=== PATIENT | male | born 1985 | race Caucasian/White ===

== ENCOUNTER 2019-07-06 16:24 | Inpatient (IN) | payer MEDICARE, MEDICAID ==
[~2019-07-06] VITALS: Ht 188 cm; Wt 131.0 kg
--- NOTE | ~2019-07-06 | CON ---
[address] [address] CONSULTATION Name: ADARSH JORDAN Room: [address] IN .R.#: [id number] Admission: 07/06/19 Attend Phys: Vern Ching Discharge: Date of : 81 Report #: [id number] THIS REPORT FOR: //name// cc: NACHO - Mitzi family physician/PCP NACHO - Mitzi family physician/PCP ~ THIS REPORT FOR: //name// CC: NACHO physician/PCP Meir Mckeon DATE OF SERVICE: 07/07/2019 REQUESTING PHYSICIAN: Kale Ramsay MD REASON FOR CONSULTATION: Assist in providing dialysis. HISTORY OF PRESENT ILLNESS: The patient is a 34-year-old man with medical history significant for end-stage renal disease, who presents to the Emergency Room with chief complaints of shortness of breath, weakness. He was found to be fluid overloaded. The patient did not go to his Dialysis Unit because he fell and hit his right knee. PAST MEDICAL HISTORY: 1. End-stage renal disease. 2. History of cardiomyopathy. 3. Degenerative joint disease. FAMILY HISTORY: Noncontributory. SOCIAL HISTORY: No alcohol abuse. MEDICATIONS PRIOR TO ADMISSION: Reviewed. REVIEW OF SYSTEMS: Positive for the symptoms I mentioned earlier, otherwise all systems reviewed and negative. PHYSICAL EXAMINATION: GENERAL: Examined on dialysis, awake, alert, oriented. VITAL SIGNS: Blood pressure 115/66, heart rate 69, afebrile. HEENT: Pupils are round. NECK: Fatty. LUNGS: Clear. CARDIOVASCULAR: Regular rate. ABDOMEN: Soft. LOWER EXTREMITIES: No edema. [facility] [address] [place] [address] CONSULTATION Name: ADARSH JORDAN Room: [address] IN .R.#: [id number] Admission: 07/06/19 Attend Phys: Vern Ching Discharge: Date of : 81 Report #: [id number] ASSESSMENT: 1. End-stage renal disease. 2. Fluid overload. 3. Status post fall with self-trauma to right knee. PLAN: Dialysis today. Most likely, he will be okay to go home after dialysis. By: [id number] Cobb MD /nt
[~2019-07-06 16:24] MED LIST: BACTRIM DS TAB1 EACH PO; DARVOCET-N 1001 EACH PO; HUMALOG100 UNIT/1; IBUPROFEN 800800 MG PO; LANTUS; NOHOMEMEDICATIONS; NORFLEX100 MG PO
[2019-07-06 16:28] VITALS: BP 93/50
[2019-07-06] MEDS ORDERED: ATORVASTATIN CA80 MG PO (16:31)
[2019-07-06] MEDS ORDERED: CARVEDILOL25 MG PO (16:31)
[2019-07-06] MEDS ORDERED: NEURONTIN100 MG PO (16:32)
[2019-07-06] MEDS ORDERED: HYDRALAZINE 2525 M1 PO (16:32)
[2019-07-06] MEDS ORDERED: CARDURA1 MG PO (16:32)
[2019-07-06] MEDS ORDERED: REGLAN 10 MG TA10 MG PO (16:33)
[2019-07-06] MEDS ORDERED: ZESTRIL40 MG PO (16:33)
[2019-07-06] MEDS ORDERED: NIFEDIPINE ER30 M1 PO (16:33)
[2019-07-06] MEDS ORDERED: PROTONIX40 M2 PO (16:34)
--- NOTE | 2019-07-06 16:56 | NUR ---
PT REFUSING LABS AT THIS TIME AND NOTIFIED VENUS WITH VERBALIZED UNDERSTANDING
[2019-07-06 17:10] LABS: INFLUENZA A ANTIGEN Negative (Negative); INFLUENZA B ANTIGEN Negative (Negative)
[2019-07-06 17:18] LABS: ABSOLUTE BASOPHILS 0.1 thou/uL (0.0-0.2); ABSOLUTE EOSINOPHILS 0.3 thou/uL (0.0-0.7); ABSOLUTE LYMPHOCYTES 0.9 thou/uL (0.8-5.3); ABSOLUTE MONOCYTES 0.8 thou/uL (0.0-1.2); ABSOLUTE NEUTROPHILS 6.6 thou/uL (1.6-8.1); BASOPHILS 1.3 %; HEMATOCRIT 28.7 % (42.0-52.0); HEMOGLOBIN 9.8 gm/dL (14.0-18.0); LYMPHOCYTES 10.6 %; MCH 30.2 pg (26.0-34.0); MCHC 34.2 g/dL (28.0-37.0); MCV 88.5 fL (80.0-100.0); MONOCYTES 9.3 %; MPV 7.3 fl. (7.2-11.1); NUCLEATED RBCS 0 /100WBC; PLATELET COUNT* 321 thou/uL (150-400); POLYS 75.8 %; RBC 3.25 mil/uL (4.50-6.00); RDW-CV 16.2 % (10.5-14.5); WBC 8.7 thou/uL (4.0-11.0)
[2019-07-06 17:35] LABS: ANION GAP 13 mmol/L (7-16); BUN 55 mg/dL (7-18); CALCIUM 7.6 mg/dL (8.5-10.1); CHLORIDE 90 mmol/L (98-107); CO2 26 mmol/L (21-32); CREATININE 7.3 mg/dL (0.6-1.3); GLUCOSE 119 mg/dL (70-99); POTASSIUM 4.4 mmol/L (3.5-5.1); SODIUM 129 mmol/L (136-145)
[2019-07-06 17:39] LABS: ALBUMIN 2.6 g/dL (3.4-5.0); ALKALINE PHOSPHATASE 233 U/L (46-116); NT-PRO BRAIN NAT PEPTIDE > 35000 pg/mL (<300); SGOT 20 U/L (15-37); SGPT 31 U/L (30-65); TOTAL BILIRUBIN 0.8 mg/dL (<0.1-1.0)
--- NOTE | 2019-07-06 19:01 | NUR ---
PT HAVING EPISODES OF DIARRHEA AND PLACED ON BSC AND HAS BEEN ON BSC FOR 20 MINUTES. PT STATES STILL GOING AT THIS TIME. PT HAS CALL LIGHT AND VERBALIZES UNDERSTANDING TO PUSH BUTTON WHEN HE IS DONE AND WE'LL GET HIM OFF THE BSC. CONTINUE TO MONITOR PT
[2019-07-06 19:43] VITALS: BP 103/56
[2019-07-06 20:00] VITALS: BP 124/70
--- NOTE | 2019-07-06 20:00 | NUR ---
RECEIVED REPORT FROM ER, ADMITTED TO ROOM. NO ACUTE DISTRESS. SITTING UP IN BED, O2 ON AT 2L/NC, NO SOB NOTED. ABD LARGELY DISTENDED WITH HYPERACTIVE BOWEL SOUNDS. PT IS HAVING DIARRHEA WITH HX OF GASTROPORESIS. GENNARO LOWER LEGS 3+ EDEMA. TELEMETRY APPLIED SHOWING SR. PT IS REFUSING TO HAVE BED ALARM ON FOR SAFETY DUE TO FREQ DIARRHEA. PT EDUCATED BUT CONT TO REFUSE. ACEWRAP INTACT TO LT KNEE. WILL CONT TO MONITOR AND ASSIST NEEDED.
[2019-07-07 00:23] VITALS: BP 118/71; BP 169/64
[2019-07-07 04:38] LABS: HEMATOCRIT 27.1 % (42.0-52.0); HEMOGLOBIN 9.3 gm/dL (14.0-18.0); NUCLEATED RBCS 0 /100WBC
[2019-07-07 04:41] LABS: ABSOLUTE BASOPHILS 0.1 thou/uL (0.0-0.2); ABSOLUTE EOSINOPHILS 0.3 thou/uL (0.0-0.7); ABSOLUTE MONOCYTES 0.7 thou/uL (0.0-1.2); ABSOLUTE NEUTROPHILS 5.2 thou/uL (1.6-8.1); EOSINOPHILS 4.2 %; LYMPHOCYTES 14.3 %; MCH 30.2 pg (26.0-34.0); MCHC 34.2 g/dL (28.0-37.0); MCV 88.3 fL (80.0-100.0); MPV 7.4 fl. (7.2-11.1); PLATELET COUNT* 281 thou/uL (150-400); POLYS 70.5 %; RBC 3.07 mil/uL (4.50-6.00); RDW-CV 15.8 % (10.5-14.5); WBC 7.3 thou/uL (4.0-11.0)
[2019-07-07 04:46] VITALS: BP 119/71
[2019-07-07 05:08] LABS: ALBUMIN 2.5 g/dL (3.4-5.0); CALCIUM 7.9 mg/dL (8.5-10.1); CREATININE 7.6 mg/dL (0.6-1.3); POTASSIUM 4.2 mmol/L (3.5-5.1); TOTAL BILIRUBIN 0.8 mg/dL (<0.1-1.0); TOTAL PROTEIN 6.6 g/dL (6.4-8.2)
--- NOTE | 2019-07-07 06:52 | NUR ---
AWAKE MOST OF NIGHT WITH C/O BACK PAIN. NO INCREASED SOA. CONT TO HAVE DIARRHEA. CORRECTION-ABRASION IS TO RT KNEE, PT REMOVED ACEWRAP, LG BANDAID TO SITE. PT CONT TO HAVE DIARRHEA. TELEMETRY CONT TO SHOW SR. NO CHANGE IN ASSESSMENT. HOURLY ROUNDING OBSERVED.
[2019-07-07 07:10] VITALS: BP 115/66
--- NOTE | 2019-07-07 09:36 | EKG ---
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1985 Requested By: Jeremy Turcios Order Number: [id number] MD: Benigno Lynn Measurements Intervals [place] Rate: 64 P: -7 [place]: 183 QRS: 2 QRSD: 113 T: 95 QT: 478 QTc: 494 Interpretive Statements Sinus rhythm Borderline intraventricular conduction delay Nonspecific T abnormalities, lateral leads Borderline prolonged QT interval No previous ECG available for comparison Electronically Signed On 07-07-2019 9:34:47 CDT by Benigno Lynn [email or web address] <ELECTRONICALLY SIGNED> By: Benigno Lynn MD, FACC 07/07/19 0934 1657 1657 Benigno Lynn MD, [facility] /EPI
--- NOTE | 2019-07-07 11:03 | NUR ---
INITAL ASSESSMENT COMPLETED CHARTED. VSS. PT C/O CHRONIC BACK PAIN, OTHERWISE NO COMPLAINTS. PT IN DIALYSIS. TO D/C TODAY AFTER DIALYSIS. NO NEW CONCERNS. REFER TO CHARTING FOR FURTHER DETAILS. HOURLY ROUNDING IN PLACE FOR PT SAFETY. PT REFUSES FALL PRECAUTIONS. CLWR.
[2019-07-07 13:32] VITALS: BP 144/89
--- NOTE | 2019-07-07 13:45 | NUR ---
DISCUSSED WITH NURSE AND TRIED TO CALL PT IN DIALYSIS AND IN ROOM, UNABLE TO REACH. NOTED DC ORDERS. PT FROM HOME AND GOES TO DIALYSIS
== END 2019-07-07 15:12 | disposition home or self-care (01) | DRG 682 ==
LOC: M.ERS 16:24 → M.2W 18:16 → M.TBA-ER 18:16 → M.2W 20:26
PROVIDERS: Physician Assistant; ADMIT Internal Medicine
PROC: 5A1D70Z Performance of Urinary Filtration, Intermittent, Less than 6 Hours Per Day (ICD-10-PCS; principal; 2019-07-07)
DX: N17.9 Acute kidney failure, unspecified (principal); I50.33 Acute on chronic diastolic (congestive) heart failure; E43 Unspecified severe protein-calorie malnutrition; I13.2 Hypertensive heart and chronic kidney disease with heart failure and with stage 5 chronic kidney disease, or end stage renal disease; I43 Cardiomyopathy in diseases classified elsewhere; N18.6 End stage renal disease; E11.22 Type 2 diabetes mellitus with diabetic chronic kidney disease; E11.43 Type 2 diabetes mellitus with diabetic autonomic (poly)neuropathy; F17.210 Nicotine dependence, cigarettes, uncomplicated; K31.84 Gastroparesis; M19.90 Unspecified osteoarthritis, unspecified site; S80.01XA Contusion of right knee, initial encounter; W18.39XA Other fall on same level, initial encounter; Z79.899 Other long term (current) drug therapy; Z99.2 Dependence on renal dialysis; Z68.37 Body mass index [BMI] 37.0-37.9, adult; Z79.4 Long term (current) use of insulin; Y93.89 Activity, other specified; Y92.89 Other specified places as the place of occurrence of the external cause; Y99.8 Other external cause status

== ENCOUNTER 2019-10-21 07:44 | Observation (INO) | payer MEDICARE, MEDICAID ==
[~2019-10-21] VITALS: Ht 188 cm; Wt 123.8 kg
[~2019-10-21 07:44] MED LIST changes: +ATORVASTATIN CA80 MG PO; +CARDURA1 MG PO; +CARVEDILOL25 MG PO; +HYDRALAZINE 2525 M1 PO; +NEURONTIN100 MG PO; +NIFEDIPINE ER30 M1 PO; +PROTONIX40 M2 PO; +REGLAN 10 MG TA10 MG PO; +ZESTRIL40 MG PO
[2019-10-21 07:50] VITALS: BP 172/101
[2019-10-21 08:20] LABS: ABSOLUTE BASOPHILS 0.1 thou/uL (0.0-0.2); ABSOLUTE EOSINOPHILS 0.3 thou/uL (0.0-0.7); ABSOLUTE LYMPHOCYTES 0.8 thou/uL (0.8-5.3); ABSOLUTE MONOCYTES 0.7 thou/uL (0.0-1.2); ABSOLUTE NEUTROPHILS 5.7 thou/uL (1.6-8.1); EOSINOPHILS 3.7 %; HEMATOCRIT 37.5 % (42.0-52.0); HEMOGLOBIN 12.7 gm/dL (14.0-18.0); LYMPHOCYTES 11.1 %; MCH 29.8 pg (26.0-34.0); MCHC 33.9 g/dL (28.0-37.0); MCV 87.9 fL (80.0-100.0); MONOCYTES 9.7 %; MPV 7.2 fl. (7.2-11.1); NUCLEATED RBCS 0 /100WBC; PLATELET COUNT* 340 thou/uL (150-400); POLYS 74.5 %; RBC 4.27 mil/uL (4.50-6.00); RDW-CV 14.4 % (10.5-14.5); WBC 7.6 thou/uL (4.0-11.0)
--- NOTE | 2019-10-21 08:20 | NUR ---
PT GIVEN BEDSIDE CAMODE PER REQUEST.
[2019-10-21 08:28] LABS: ANION GAP 13 mmol/L (7-16); BUN 50 mg/dL (7-18); CALCIUM 8.7 mg/dL (8.5-10.1); CHLORIDE 94 mmol/L (98-107); CO2 29 mmol/L (21-32); CREATININE 7.8 mg/dL (0.6-1.3); GLUCOSE 140 mg/dL (70-99); POTASSIUM 4.7 mmol/L (3.5-5.1); SODIUM 136 mmol/L (136-145)
[2019-10-21 08:29] LABS: APTT 32.7 Seconds (25.0-31.3); PROTIME 10.6 Seconds (9.20-11.50)
[2019-10-21 08:38] LABS: ALBUMIN 2.9 g/dL (3.4-5.0); ALKALINE PHOSPHATASE 210 U/L (46-116); NT-PRO BRAIN NAT PEPTIDE > 35000 pg/mL (<300); SGOT 36 U/L (15-37); SGPT 62 U/L (30-65); TOTAL BILIRUBIN 0.7 mg/dL (<0.1-1.0); TOTAL PROTEIN 7.7 g/dL (6.4-8.2)
--- NOTE | 2019-10-21 11:24 | EKG ---
[place] [address] ELECTROCARDIOGRAM REPORT Name: ADARSH JORDAN Room: [address] M..#: [id number] Admission: 10/21/19 Attend Phys: Mehdi Rendon, Discharge: Date of : 81 Date of Service: 10/21/19 0751 Report #: [id number] THIS REPORT FOR: //name// [facility] ED Test Date: 2019-10-21 Test Time: 07:51:46 Pat Name: ADARSH JORDAN Department: Room: 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: : 1985 Requested By: Bobby [place] Order Number: [id number] MD: Benigno Lynn Measurements Intervals [place] Rate: 86 P: -3 [place]: 148 QRS: -7 QRSD: 103 T: 119 QT: 392 QTc: 469 Interpretive Statements Sinus rhythm late transition Probable LVH with secondary repol abnrm Compared to ECG 07/06/2019 16:57:41 no change Electronically Signed On 10-21-2019 11:24:14 CDT by Benigno Lynn [email or web address] <ELECTRONICALLY SIGNED> By: Benigno Lynn MD, [facility] 10/21/19 1124 0751 0751 Benigno Lynn MD, [facility] /EPI
[2019-10-21 13:41] LABS: BF RBC <1000 /mm3; CLARITY CLEAR; SOURCE ASCITES; TOTAL CELL COUNT 475 /mm3; TOTAL VOLUME 9100 ml
[2019-10-21 14:03] VITALS: BP 209/152
[2019-10-21 14:19] LABS: BF LYMPHOCYTES 96 %; BF POLYS 4 %; BF TISSUE 81 /100 WBC
--- NOTE | 2019-10-21 14:38 | NUR ---
PT TO ROOM 220 VIA CART. NSR ON MONITOR. CALL LIGHT WITHIN REACH. PT ORIENTED TO ROOM
[2019-10-21 15:00] VITALS: BP 189/100
[2019-10-21 16:06] VITALS: BP 197/120
--- NOTE | 2019-10-21 17:58 | NUR ---
PT TO ROOM THIS AFTERNOON FROM ER. PT STATES HIS BREATHING IS CONSIDERABLE BETTER SINCE PARACENTESIS AND THORACENTESIS. BANDAGES TO RIGHT ABD AND RIGHT UPPER BACK INTACT-NO BLEEDING. NSR ON MONITOR. REPORTS PAIN CONTROLLED WITH IV PAIN MEDS
[2019-10-21 19:40] VITALS: BP 147/82
[2019-10-21 23:29] VITALS: BP 146/88
[2019-10-22 04:28] VITALS: BP 127/74
[2019-10-22 05:22] LABS: ALBUMIN 2.4 g/dL (3.4-5.0); CALCIUM 8.2 mg/dL (8.5-10.1); MAGNESIUM 2.2 mg/dL (1.8-2.4); PHOSPHORUS* 5.8 mg/dL (2.5-4.9); POTASSIUM 4.9 mmol/L (3.5-5.1)
[2019-10-22 05:25] LABS: CREATININE 9.3 mg/dL (0.6-1.3)
--- NOTE | 2019-10-22 05:38 | NUR ---
PATIENT PROGRESSING TOWARDS GOALS: PATIENT DENIES SHORTNESS OF BREATH THIS SHIFT. REMAINS ON ROOM AIR WITH O2 SATURATION >92%. PATIENT'S PAIN PARTIALLY MANAGED WITH MEDICATION PER MAR AND RELAXATION. CALL LIGHT WITHIN REACH
[2019-10-22 07:30] VITALS: BP 131/79
[2019-10-22 13:00] VITALS: BP 100/61
[2019-10-22 13:08] VITALS: BP 131/79
--- NOTE | 2019-10-22 14:18 | CON ---
[address] [address] CONSULTATION Name: ADARSH JORDAN Room: [address] M.R.#: [id number] Admission: 10/21/19 Attend Phys: Mehdi Rendon MD Discharge: Date of : 81 Report #: [id number] THIS REPORT FOR: //name// cc: NACHO Cartagena family physician/PCP ANCHO - No family physician/PCP ~ THIS REPORT FOR: //name// CC: NACHO physician/PCP Mehdi Rendon DATE OF SERVICE: 10/21/2019 NEPHROLOGY CONSULTATION CONSULTING PHYSICIAN: Mehdi Rendon MD REASON FOR CONSULTATION: End-stage kidney disease. HISTORY OF PRESENT ILLNESS: This is a 34-year-old gentleman with a history of end-stage kidney disease who was admitted with shortness of breath and inability to complete his dialysis today due to shortness of breath. He was in respiratory distress and his abdomen was very distended. He had been eating a lot of watermelon over the 10/17/2019 holiday. He underwent a large volume paracentesis, in which 9.1 liters of fluid was removed. He underwent a thoracentesis, in which 1 liter of fluid was removed. Currently, he is feeling much better. He has no shortness of breath at this time. REVIEW OF SYSTEMS: Constitutional, psych, heme, eyes, ENT, respiratory, cardiac, GI, , endocrine all negative except as documented above. He does have chronic diarrhea. PAST MEDICAL HISTORY: 1. End-stage kidney disease. 2. Diabetes. 3. History of gastroparesis. 4. Hypertension. 5. Coronary artery disease with history of stenting. 6. History of back surgery. FAMILY HISTORY: Not pertinent to current clinical condition. SOCIAL HISTORY: Positive history of tobacco use, marijuana use. Denies alcohol. CURRENT MEDICATIONS: [place] [address] CONSULTATION Name: ADARSH JORDAN Room: [address]#: [id number] Admission: 10/21/19 Attend Phys: Mehdi Rendon MD Discharge: Date of : 81 Report #: [id number] PHYSICAL EXAMINATION: VITAL SIGNS: Blood pressure is 164/98, more recently it was elevated into the 200s systolic. Pulse is 80, respirations 18. GENERAL: No acute distress. EYES: Open. EARS: Externally normal. NECK: Supple. CARDIOVASCULAR: Regular rate. LUNGS: Diminished breath sounds. ABDOMEN: Nontender. MUSCULOSKELETAL: Nontender. No significant pitting edema. PSYCHIATRIC: Awake, alert. LABORATORY DATA: White cell count 7.6, hemoglobin 12.7, platelets 340. Sodium 136, potassium 4.7, chloride 94, bicarbonate 29, BUN 50, creatinine 7.8, glucose 140, calcium 8.7, albumin 2.9. ASSESSMENT: 1. End-stage kidney disease, hemodialysis on Saturday, Saturday and Saturday at the [facility]. 2. Abdominal ascites, status post 9.1 liter paracentesis. 3. Pleural effusion with possible aspiration. We will defer management to Internal Medicine. He did undergo 1 liter thoracentesis. 4. Chronic diarrhea. 5. Diabetes with gastroparesis. 6. Hypertension. 7. Coronary artery disease with history of stenting. PLAN: 1. We will complete dialysis tomorrow. He will have 3 hours to complete his dialysis session tomorrow. 2. 1.5 liters per day fluid restriction. 3. GI has been consulted. He does have chronic diarrhea and ascites. 4. Start renal vitamin. 5. Suggest renally dosing gabapentin. It should be once a day. 6. No dietary protein restriction as he has hypoalbuminemia. 7. Resume antihypertensives. With taps completed as well as antihypertensive medications, I expect blood pressure will come under better control. We will follow along with you. Thank you for requesting my opinion in the care and management of this patient. <ELECTRONICALLY SIGNED> By: Doretha Seo MD 10/22/19 1418 1504 [id number] Seo MD /nt
[2019-10-22 15:04] VITALS: BP 131/86
== END 2019-10-22 18:15 | disposition home or self-care (01) ==
LOC: M.ERS 07:44 → M.TBA-ER 10:26 → M.2W 14:16
PROVIDERS: Family Medicine; ADMIT Internal Medicine; ATTEND Internal Medicine
DX: R06.00 Dyspnea, unspecified (principal); I12.0 Hypertensive chronic kidney disease with stage 5 chronic kidney disease or end stage renal disease; N18.6 End stage renal disease; E11.43 Type 2 diabetes mellitus with diabetic autonomic (poly)neuropathy; K31.84 Gastroparesis; R06.03 Acute respiratory distress; I25.10 Atherosclerotic heart disease of native coronary artery without angina pectoris